=== PATIENT | female | born 1975 | race African-American/Black ===

== ENCOUNTER 2019-09-20 18:31 | Emergency (ER) | payer SELFPAY ==
[~2019-09-20] VITALS: Ht 162.6 cm; Wt 102.0 kg
[2019-09-20] MEDS ORDERED: IV NORMAL SALINE 1000ML BAG 1,000 ML IV ONE (19:30)
[2019-09-20 19:31] VITALS: BP 156/85
--- NOTE | 2019-09-20 19:44 | PHYS DOC ---
Past Medical History Past Medical History: Anxiety, Asthma (CHLOÉ KING APRN) Past Surgical History: Cholecystectomy, , Tonsillectomy, Tubal ligation (CHLOÉ KING APRN) Smoking Status: Current Every Day Smoker Alcohol Use: None (CHLOÉ KING APRN) General Adult EDM: Chief Complaint: NAUSEA/VOMITING/DIARRHA HPI: HPI: Patient is a 44 year old female who presents to the emergency department today for nausea and vomiting for 2 months. Patient describes emesis as yellow and bile-like in appearance. She reports that she did not vomit today. Patient is able to eat and drink but states that when she eats too much she has to vomit. She states that the vomiting usually occurs when she is at work. Patient reports that she has a great deal of anxiety when she is at work. She was previously taking 10 mg of Valium at bedtime for anxiety but 6 months ago she lost her health insurance and stopped taking her anxiety medication. Patient states she does not have a psychiatrist at this time, she denies any suicidal or homicidal ideations. She denies any abdominal pain, diarrhea, constipation, back pain, dysuria, hematuria, bloody stools, fevers, cough, or nasal congestion. Patient reports her last bowel movement was this morning and it was normal. She currently denies any pain. (CHLOÉ KING APRN) Review of Systems: Review of Systems: Constitutional: Denies fever or chills. [] HENT: Denies nasal congestion or sore throat. [] Respiratory: Denies cough or shortness of breath. [] Cardiovascular: Denies chest pain or edema. [] GI: See HPI : Denies dysuria, hematuria, or increased urinary frequency Skin: Denies rash Musculoskeletal: Denies back pain or joint pain. [] Neurologic: Denies headache, focal weakness or sensory changes. [] Psychiatric: Denies depression or anxiety. [] (CHLOÉ KING APRN) Heart Score: Risk Factors: Risk Factors: DM, Current or recent (<one month) smoker, HTN, HLP, family history of CAD, obesity. Risk Scores: Score 0 - 3: 2.5% MACE over next 6 weeks - Discharge Home Score 4 - 6: 20.3% MACE over next 6 weeks - Admit for Clinical Observation Score 7 - 10: 72.7% MACE over next 6 weeks - Early Invasive Strategies (CHLOÉ KING APRN) Current Medications: Current Medications Medications (Trade) Dose Ordered Sig/Jamee Start Time Stop Time Status Last Admin Dose Admin Ondansetron HCl (Zofran) 4 mg 1X ONCE 09/20/19 20:00 09/20/19 20:01 Sodium Chloride 1,000 ml @ 1,000 mls/hr 1X ONCE 09/20/19 19:30 09/20/19 20:29 (CHLOÉ KING APRN) Allergies: Allergies: Allergies Coded Allergies Type Severity Reaction Last Updated Verified amoxicillin Allergy Unknown 09/20/19 Yes (CHLOÉ KING APRN) Physical Exam: PE: Constitutional: Well developed, well nourished, no acute distress, non-toxic appearance, obese. [] HENT: Normocephalic, atraumatic, bilateral external ears normal, oropharynx moist, nose normal. [] Eyes: PERRLA, EOMI, conjunctiva normal, no discharge. [] Neck: Normal range of motion, no stridor. [] Cardiovascular:Heart rate regular rhythm Lungs & Thorax: Bilateral breath sounds clear to auscultation, Respirations even and unlabored, no retractions, no respiratory distress[] Abdomen: Bowel sounds normal, soft, no tenderness, no masses, no pulsatile masses. [] Skin: Warm, dry, no erythema, no rash. [] Back: No tenderness [] Extremities: No cyanosis, no clubbing, ROM intact, no edema. [] Neurologic: Alert and oriented X 3, normal motor function, no focal deficits noted. [] Psychologic: Affect normal, judgement normal, mood normal. [] (CHLOÉ KING APRN) Current Patient Data: Labs: Laboratory Tests Test 09/20/19 19:10 POC Urine HCG, Qualitative Hcg negative (Negative) Vital Signs: Vital Signs Date Time Temp Pulse Resp B/P (MAP) Pulse Ox O2 Delivery O2 Flow Rate FiO2 09/20/19 19:31 98.6 77 16 156/85 (108) 100 Room Air 98.6 (CHLOÉ KING APRN) EKG: EKG: [] (CHLOÉ KING APRN) Radiology/Procedures: Radiology/Procedures: [] (CHLOÉ KING APRN) Course & Med Decision Making: Course & Med Decision Making Pertinent Labs and Imaging studies reviewed. (See chart for details) Patient is a 44-year-old female being evaluated for nausea and vomiting for 2 months. Work-up included blood work and a urine sample. CBC, CMP, lipase, and UA were all unremarkable, patient's urine hCG is negative. Patient was given 1 L of normal saline and 4 mg of Zofran for nausea. Pj from the PAT team came to evaluate the patient for problems with anxiety and need for psychiatric resources. Patient reported feeling better after the medications were received. I gave the patient 1 dose of 10 mg of valium. Prescription was written for 10 mg tablets of Valium, #10. Patient was instructed to take 1/2 to 1 tablet at night as needed for anxiety. She was encouraged to use the resources provided to her by day for follow-up. Patient verbalized an understanding of home care, medications, follow-up, and return to ED instructions and was in agreement with the plan of care. [] (CHLOÉ KING APRN) Dragon Disclaimer: Dragon Disclaimer: This electronic medical record was generated, in whole or in part, using a voice recognition dictation system. (CHLOÉ KING APRN) Departure Departure Impression: Primary Impression: Anxiety Additional Impression: Nausea & vomiting Qualified Codes: R11.2 - Nausea with vomiting, unspecified Disposition: 01 HOME, SELF-CARE Condition: STABLE Referrals: NO PCP (PCP) Patient Instructions: Anxiety and Panic Attacks, [id number] Additional Instructions: Fill the prescription and use as directed. 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 Scripts Diazepam (DIAZEPAM) 10 Mg Tablet 10 MG PO HS for 10 Days, #10 TAB 0 Refills Prov: CHLOÉ KING APRN 09/20/19 Justicifation of Admission Dx: Justifications for Admission: Justification of Admission Dx: N/A (CHLOÉ KING APRN) Attending Signature Attending Signature I have reviewed the PA/ASSOCIATE PROFESSOR OF FORESTRY's note and plan of care. I was available for consultation as needed during the patient's visit in the emergency department. I agree with the clinical impression, plan, and disposition. (LUIS DANIEL DUDLEY DO) CHLOÉ KING APRN Sep 20, 2019 19:44 LUIS DANIEL DUDLEY DO Sep 21, 2019 01:38
[2019-09-20 19:52] LABS: BASO # 0.1 x10^3/uL (0.0-0.2); BASO % 1 % (0-3); EOS # 0.2 x10^3/uL (0.0-0.7); EOS % 2 % (0-3); HEMATOCRIT 41.5 % (36.0-47.0); HEMOGLOBIN 14.7 g/dL (12.0-15.5); LYMPH # 2.9 x10^3/uL (1.0-4.8); LYMPH % 34 % (24-48); MEAN CORPUSCULAR HEMOGLOBIN 33 pg (25-35); MEAN CORPUSCULAR HGB CONC 35 g/dL (31-37); MEAN CORPUSCULAR VOLUME 94 fL (79-100); MONO # 0.8 x10^3/uL (0.0-1.1); MONO % 9 % (0-9); NEUT # 4.7 x10^3/uL (1.8-7.7); NEUT % 54 % (31-73); PLATELET COUNT 254 x10^3/uL (140-400); RED CELL DISTRIBUTION WIDTH 12.2 % (11.5-14.5); WHITE BLOOD COUNT 8.7 x10^3/uL (4.0-11.0)
[2019-09-20 19:53] LABS: BILIRUBIN,URINE NEGATIVE (NEG); CLARITY,URINE CLEAR; COLOR,URINE YELLOW; NITRITE,URINE NEGATIVE (NEG); PROTEIN,URINE NEGATIVE (NEG-TRACE); UROBILINOGEN,URINE 0.2 mg/dL (0.2 mg/dL)
[2019-09-20 20:00] LABS: CALCIUM 8.8 mg/dL (8.5-10.1); CREATININE 0.8 mg/dL (0.6-1.0); GFR 95.2; POTASSIUM 3.5 mmol/L (3.5-5.1)
[2019-09-20] MEDS ORDERED: ONDANSETRON PF 4 MG/2 ML VIAL. IV ONE (20:00)
[2019-09-20 20:01] LABS: BACTERIA,URINE FEW /HPF (0-FEW); RBC,URINE 0 /HPF (0-2); SQUAMOUS EPITHELIAL CELL,UR FEW /LPF; WBC,URINE OCC /HPF (0-4)
[2019-09-20 20:05] LABS: ALBUMIN 3.9 g/dL (3.4-5.0); ALBUMIN/GLOBULIN RATIO 1.2 (1.0-1.7); MAGNESIUM 1.8 mg/dL (1.8-2.4); TOTAL BILIRUBIN 0.2 mg/dL (0.2-1.0); TOTAL PROTEIN 7.2 g/dL (6.4-8.2)
[2019-09-20] MEDS ORDERED: DIAZEPAM10 MG PO (21:41)
[2019-09-20] MEDS ORDERED: diazePAM 5 MG TABLET PO ONE (21:45)
== END 2019-09-20 21:54 | disposition home or self-care (01) ==
LOC: ER 18:31
DX: F41.9 Anxiety disorder, unspecified (principal); R11.2 Nausea with vomiting, unspecified; J45.909 Unspecified asthma, uncomplicated; F17.200 Nicotine dependence, unspecified, uncomplicated; Z90.49 Acquired absence of other specified parts of digestive tract; Z98.51 Tubal ligation status; Z98.890 Other specified postprocedural states; Z88.1 Allergy status to other antibiotic agents
CPT/HCPCS: 36415; 80053; 81001; 81025; 83690; 83735; 85025; 87086; 96361; 96374; 99283; J2405; J7030